=== PATIENT | male | born 1960 | race Caucasian/White ===

== ENCOUNTER 2018-09-09 17:17 | Inpatient (IN) | payer MEDICAID ==
[2018-09-09] VITALS (9 sets, daily range): BP systolic 88–154; BP diastolic 54–89
[~2018-09-09] VITALS: Ht 172.7 cm; Wt 66.7 kg
--- NOTE | ~2018-09-09 | MORECARE ---
CASE MANAGEMENT DISCHARGE SUMMARY PATIENT: RENITA BROOKS UNIT: [id number] ADM DATE: 09/09/18 AGE: 57 : 62 SEX: M ROOM/BED: D.1206 AUTHOR: PURVI QUICK PHYSICIAN: REFERRING PHYSICIAN: MELITON LESTER MD DATE OF SERVICE: 09/14/18 Discharge Plan Patient Name: RENITA BROOKS Facility: [facility]:[place] : 1960 Planned Disposition: Home Anticipated Discharge Date: 09/12/18 Discharge Date: 09/12/2018 Expected LOS: 3 Initial Reviewer: [email or web address] Initial Review Date: 09/12/2018 Generated: 09/14/18 8:00 pm Comments DCP- Discharge Planning Updated by [email or web address]: Nora Jordan on 09/12/18 4:[address] Patient Name: RENITA BROOKS Admission Status: ER Accout number: [id number] Admission Date: 09-09-2018 : 1960 Admission Diagnosis:UNSPECIFIED ABDOMINAL PAIN Attending: MELITON LESTER Current LOS: 3 Anticipated DC Date: 09-12-2018 Planned Disposition: Home Primary Insurance: MEDICAID [place] Discharge Planning Comments: CM met with patient about dc planning/needs. Plans to discharge to home today with daughter. No needs identified. CM will follow and assist as needed with dc planning/needs. Pork Cutlet Maker: Nora Jordan DCPIA - Discharge Planning Initial Assessment Updated by [email or web address]: Nora Jordan on 09/12/18 5:42 pm * Is the patient Alert and Oriented? Yes * PCP CLAUDINE * Pharmacy [facility] * Preadmission Environment Home with Family * ADLs Independent * Equipment Cane CPAP Glucometer Nebulizer Walker * List name and contact numbers for known caregivers / representatives who currently or will assist patient after discharge: DAVID BARNES, DAUGHTER, * Community resources currently utilized None * Additional services required to return to the preadmission environment? No * Can the patient safely return to the preadmission environment? Yes * Has this patient been hospitalized within the prior 30 days at any hospital? No Last DP export: 09/12/18 4:47 p Patient Name: RENITA BROOKS Page 59955 at 1901 All edits/amendments must be made on the electronic document DICTATION DATE: 09/14/181899 ACCELERATOR SYSTEMS DIRECTOR: OSKAR 09/14/181899 RPT#: [id number] DC DATE:09/12/18 STATUS: DIS IN [facility] [address] [place] [address] END OF REPORT
--- NOTE | ~2018-09-09 | MORECARE ---
CASE MANAGEMENT DISCHARGE SUMMARY PATIENT: RENITA BROOKS UNIT: [id number] ADM DATE: 09/09/18 AGE: 57 : 62 SEX: M ROOM/BED: D.1206 AUTHOR: PURVI QUICK PHYSICIAN: REFERRING PHYSICIAN: MELITON LESTER MD DATE OF SERVICE: 09/12/18 Discharge Plan Patient Name: RENITA BROOKS [facility] [facility] 1960 Planned Disposition: Home Anticipated Discharge Date: 09/12/18 Discharge Date: 09/12/2018 Expected LOS: 3 Initial Reviewer: [email or web address] Initial Review Date: 09/12/2018 Generated: 09/12/18 6:40 pm Patient Name: RENITA BROOKS Page 73889 at 1740 All edits/amendments must be made on the electronic document DICTATION DATE: 09/12/181739 TALEND DEVELOPER: OSKAR 09/12/181739 RPT#: [id number] DC DATE:09/12/18 STATUS: DIS IN [facility] [address] [place] [address] END OF REPORT
--- NOTE | ~2018-09-09 | MORECARE ---
CASE MANAGEMENT DISCHARGE SUMMARY PATIENT: RENITA BROOKS UNIT: [id number] ADM DATE: 09/09/18 AGE: 57 : 62 SEX: M ROOM/BED: D.1206 AUTHOR: PURVI QUICK PHYSICIAN: REFERRING PHYSICIAN: MELITON LESTER MD DATE OF SERVICE: 09/12/18 Discharge Plan Patient Name: RENITA BROOKS Facility: [facility]:[place] : 1960 Planned Disposition: Home Anticipated Discharge Date: 09/12/18 Discharge Date: 09/12/2018 Expected LOS: 3 Initial Reviewer: [email or web address] Initial Review Date: 09/12/2018 Generated: 09/12/18 6:47 pm Comments DCP- Discharge Planning Updated by [email or web address]: Nora Jordan on 09/12/18 4:[address] Patient Name: RENITA BROOKS Admission Status: ER Accout number: [id number] Admission Date: 09-09-2018 : 1960 Admission Diagnosis:UNSPECIFIED ABDOMINAL PAIN Attending: MELITON LESTER Current LOS: 3 Anticipated DC Date: 09-12-2018 Planned Disposition: Home Primary Insurance: MEDICAID [place] Discharge Planning Comments: CM met with patient about dc planning/needs. Plans to discharge to home today with daughter. No needs identified. CM will follow and assist as needed with dc planning/needs. Internal Grinder Tender: Nora Jordan DCPIA - Discharge Planning Initial Assessment Updated by [email or web address]: Nora Jordan on 09/12/18 5:42 pm * Is the patient Alert and Oriented? Yes * PCP CLAUDINE * Pharmacy [facility] * Preadmission Environment Home with Family * ADLs Independent * Equipment Cane CPAP Glucometer Nebulizer Walker * List name and contact numbers for known caregivers / representatives who currently or will assist patient after discharge: DAVID BARNES, DAUGHTER, * Community resources currently utilized None * Additional services required to return to the preadmission environment? No * Can the patient safely return to the preadmission environment? Yes * Has this patient been hospitalized within the prior 30 days at any hospital? No Last DP export: 09/12/18 4:40 p Patient Name: RENITA BROOKS Page 46258 at 1747 All edits/amendments must be made on the electronic document DICTATION DATE: 09/12/181746 TRAINING AND DEVELOPMENT COORDINATOR: OSKAR 09/12/181746 RPT#: [id number] DC DATE:09/12/18 STATUS: DIS IN [facility] [address] [place] [address] END OF REPORT
[2018-09-09] MEDS ORDERED: TOPROL XL50 MG PO (18:04)
[2018-09-09] MEDS ORDERED: CELEXA40 MG PO (18:04)
[2018-09-09] MEDS ORDERED: PRINIVIL20 MG PO (18:04)
[2018-09-09] MEDS ORDERED: GLIPIZIDE10 MG PO ×2 (18:05→18:07)
[2018-09-09] MEDS ORDERED: GLUCOPHAGE1000 MG PO (18:05)
[2018-09-09] MEDS ORDERED: NORCO 10-325 TA1 TAB PO (18:06)
[2018-09-09] MEDS ORDERED: LYRICA150 MG PO (18:06)
[2018-09-09 18:34] LABS: BASOPHILS 0.3 % (0-2); EOSINOPHILS 0.9 % (0-7); HEMATOCRIT 40.4 % (42.0-54.0); HEMOGLOBIN 14.5 g/dL (13.5-17.5); IMMATURE GRANULOCYTES 0.2 % (0-5); LYMPHOCYTES 24.8 % (15-50); MCH 32.8 pg (26.0-34.0); MCHC 35.9 g/dL (31.0-37.0); MCV 91.4 fL (80.0-100.0); MEAN PLATELET VOLUME 10.8 fL (7.4-10.4); MONOCYTES 9.2 % (2-11); NEUTROPHILS 64.6 % (40-80); PLATELET COUNT 229 10x3/uL (130-400); RBC 4.42 10x6/uL (4.20-6.10); RDW 11.7 % (11.5-14.5); WBC 6.4 10x3/uL (4.8-10.8)
[2018-09-09 18:39] LABS: KETONE - SERUM NEGATIVE (NEGATIVE)
[2018-09-09 18:48] LABS: ALBUMIN 3.8 g/dL (3.4-5.0); ALKALINE PHOSPHATASE 50 U/L (46-116); ALT (SGPT) 51 U/L (10-68); BILIRUBIN - TOTAL 0.53 mg/dL (0.2-1.3); CALCIUM 8.9 mg/dL (8.5-10.1); CARBON DIOXIDE 22.5 mmol/L (21.0-32.0); CHLORIDE - SERUM 94 mmol/L (98-107); CREATININE - SERUM 0.9 mg/dL (0.6-1.3); MAGNESIUM - SERUM 1.4 mg/dL (1.8-2.4); POTASSIUM - SERUM 4.8 mmol/L (3.5-5.1); PROTEIN - SERUM 6.8 g/dL (6.4-8.2); SODIUM 125 mmol/L (136-145); UREA NITROGEN 10 mg/dL (7-18); eGFR NON AFRICAN AMERICAN > 90 mL/min (90-120)
[2018-09-09 18:50] LABS: APPEARANCE CLEAR (CLEAR); BILIRUBIN NEGATIVE (NEGATIVE); COLOR YELLOW (YELLOW); GLUCOSE 1000 mg/dL (NEGATIVE); KETONE NEGATIVE (NEGATIVE); NITRITE NEGATIVE (NEGATIVE); PROTEIN NEGATIVE (NEGATIVE); UROBILINOGEN NORMAL (NORMAL)
[2018-09-09 18:52] LABS: CALC OSMOLALITY 276 mosm/kg (275-300); GLUCOSE 563 mg/dL (74-106)
[2018-09-10 10:31] LABS: BASOPHILS 0.6 % (0-2); EOSINOPHILS 1.3 % (0-7); HEMATOCRIT 38.2 % (42.0-54.0); HEMOGLOBIN 13.7 g/dL (13.5-17.5); IMMATURE GRANULOCYTES 0.2 % (0-5); LYMPHOCYTES 27.3 % (15-50); MCH 32.9 pg (26.0-34.0); MCHC 35.9 g/dL (31.0-37.0); MCV 91.6 fL (80.0-100.0); MEAN PLATELET VOLUME 10.3 fL (7.4-10.4); MONOCYTES 6.6 % (2-11); PLATELET COUNT 220 10x3/uL (130-400); RBC 4.17 10x6/uL (4.20-6.10); RDW 12.1 % (11.5-14.5); WBC 6.2 10x3/uL (4.8-10.8)
[2018-09-10 10:45] LABS: ALBUMIN 3.5 g/dL (3.4-5.0); ALKALINE PHOSPHATASE 38 U/L (46-116); ALT (SGPT) 47 U/L (10-68); BILIRUBIN - TOTAL 0.46 mg/dL (0.2-1.3); CALCIUM 8.3 mg/dL (8.5-10.1); CARBON DIOXIDE 26.7 mmol/L (21.0-32.0); CHLORIDE - SERUM 100 mmol/L (98-107); CREATININE - SERUM 0.8 mg/dL (0.6-1.3); POTASSIUM - SERUM 4.2 mmol/L (3.5-5.1); PROTEIN - SERUM 6.4 g/dL (6.4-8.2); SODIUM 134 mmol/L (136-145); eGFR NON AFRICAN AMERICAN > 90 mL/min (90-120)
[2018-09-10 10:46] LABS: CALC OSMOLALITY 271 mosm/kg (275-300); GLUCOSE 232 mg/dL (74-106); UREA NITROGEN 4 mg/dL (7-18)
[2018-09-10 20:52] VITALS: BP 135/87
[2018-09-11] VITALS (7 sets, daily range): BP systolic 114–160; BP diastolic 75–108; Ht 172.7 cm; Wt 66.7 kg
[2018-09-11 06:44] LABS: BASOPHILS 0.6 % (0-2); EOSINOPHILS 2.5 % (0-7); HEMOGLOBIN 13.9 g/dL (13.5-17.5); IMMATURE GRANULOCYTES 0.2 % (0-5); LYMPHOCYTES 25.8 % (15-50); MCH 32.7 pg (26.0-34.0); MCHC 35.6 g/dL (31.0-37.0); MCV 91.8 fL (80.0-100.0); MEAN PLATELET VOLUME 10.9 fL (7.4-10.4); MONOCYTES 7.6 % (2-11); NEUTROPHILS 63.3 % (40-80); PLATELET COUNT 195 10x3/uL (130-400); RBC 4.25 10x6/uL (4.20-6.10); WBC 4.7 10x3/uL (4.8-10.8)
[2018-09-11 07:04] LABS: ALBUMIN 3.3 g/dL (3.4-5.0); ALKALINE PHOSPHATASE 36 U/L (46-116); ALT (SGPT) 52 U/L (10-68); BILIRUBIN - TOTAL 0.45 mg/dL (0.2-1.3); CALCIUM 8.3 mg/dL (8.5-10.1); CARBON DIOXIDE 27.3 mmol/L (21.0-32.0); CHLORIDE - SERUM 102 mmol/L (98-107); CREATININE - SERUM 0.7 mg/dL (0.6-1.3); POTASSIUM - SERUM 3.8 mmol/L (3.5-5.1); PROTEIN - SERUM 6.1 g/dL (6.4-8.2); SODIUM 136 mmol/L (136-145); UREA NITROGEN 3 mg/dL (7-18); eGFR NON AFRICAN AMERICAN > 90 mL/min (90-120)
[2018-09-11 07:08] LABS: CALC OSMOLALITY 278 mosm/kg (275-300); GLUCOSE 285 mg/dL (74-106)
[2018-09-12 04:00] VITALS: BP 115/75
[2018-09-12 06:59] LABS: BASOPHILS 0.8 % (0-2); EOSINOPHILS 3.3 % (0-7); HEMATOCRIT 41.8 % (42.0-54.0); HEMOGLOBIN 15.2 g/dL (13.5-17.5); IMMATURE GRANULOCYTES 0.2 % (0-5); MCH 32.8 pg (26.0-34.0); MCHC 36.4 g/dL (31.0-37.0); MCV 90.1 fL (80.0-100.0); MEAN PLATELET VOLUME 10.9 fL (7.4-10.4); MONOCYTES 6.7 % (2-11); PLATELET COUNT 198 10x3/uL (130-400); RBC 4.64 10x6/uL (4.20-6.10); RDW 11.8 % (11.5-14.5); WBC 4.9 10x3/uL (4.8-10.8)
[2018-09-12 07:19] LABS: ALBUMIN 3.6 g/dL (3.4-5.0); ALKALINE PHOSPHATASE 46 U/L (46-116); ALT (SGPT) 59 U/L (10-68); AMYLASE - SERUM 88 U/L (25-115); BILIRUBIN - TOTAL 0.46 mg/dL (0.2-1.3); CALCIUM 8.9 mg/dL (8.5-10.1); CARBON DIOXIDE 28.9 mmol/L (21.0-32.0); CHLORIDE - SERUM 98 mmol/L (98-107); CREATININE - SERUM 0.7 mg/dL (0.6-1.3); GLUCOSE 297 mg/dL (74-106); PROTEIN - SERUM 6.8 g/dL (6.4-8.2); SODIUM 135 mmol/L (136-145); eGFR NON AFRICAN AMERICAN > 90 mL/min (90-120)
[2018-09-12 07:20] LABS: CALC OSMOLALITY 277 mosm/kg (275-300); LIPASE 34 U/L (73-393); POTASSIUM - SERUM 4.4 mmol/L (3.5-5.1); UREA NITROGEN 4 mg/dL (7-18)
[2018-09-12 08:18] VITALS: BP 122/71
[2018-09-12 12:01] VITALS: BP 104/69
== END 2018-09-12 16:42 | disposition home or self-care (01) | DRG 392 ==
LOC: D.ER 17:17 → D.M3 20:57 → EDBD 20:57 → D.EDHOLD 20:57 → D.M3 09-10 20:52
PROVIDERS: Emergency Medicine; Family Medicine; Internal Medicine Gastroenterology
DX: A08.4 Viral intestinal infection, unspecified (principal); E87.1 Hypo-osmolality and hyponatremia; K86.1 Other chronic pancreatitis; J98.11 Atelectasis; K80.50 Calculus of bile duct without cholangitis or cholecystitis without obstruction; E11.65 Type 2 diabetes mellitus with hyperglycemia; E86.0 Dehydration; J44.9 Chronic obstructive pulmonary disease, unspecified; I10 Essential (primary) hypertension; K21.9 Gastro-esophageal reflux disease without esophagitis; F32.9 Major depressive disorder, single episode, unspecified; F10.21 Alcohol dependence, in remission; Z86.73 Personal history of transient ischemic attack (TIA), and cerebral infarction without residual deficits